=== PATIENT | female | born 1980 | race African-American/Black ===

== ENCOUNTER 2016-11-10 14:43 | Emergency (ER) | payer BC, MEDICAID ==
[~2016-11-10] VITALS: Ht 165.1 cm; Wt 89.0 kg
[2016-11-10 14:51] VITALS: Ht 165.1 cm; Wt 89.0 kg
[2016-11-10] MEDS ORDERED: KETOROLAC 15 MG INJ IV STA (21:29)
[2016-11-10 21:34] LABS: ADD SCAN DIFF NO
--- NOTE | 2016-11-10 21:35 | RADRPT ---
PROCEDURE: XR Chest. CLINICAL INDICATION: Chest pain. TECHNIQUE: Single frontal view of the chest was obtained COMPARISON: No. FINDINGS: The heart is upper limits of normal in size. The left-sided aorta is normal. The trachea and hilar structures are normal. The lungs are clear. The diaphragms are flattened. No pleural effusion is noted. The bony elements are normal. IMPRESSION: 1. Mild pulmonary hyperinflation with no evidence of an acute infiltrate. RPTAT:AAJJ Physician Tawnya Date Time Electronically viewed and signed by Luis Daniel Gary Physician on 11/10/2016 21:34 TIFFANIE/
[2016-11-10 21:38] LABS: ABNORMAL IP MESSAGE 1; HEMOGLOBIN 7.4 g/dl (12.0-16.0); MEAN CORPUSCULAR HEMOGLOBIN 29.5 pg (29.0-33.0); MEAN CORPUSCULAR VOLUME 79.7 fl (82.0-101.0); MEAN PLATELET VOLUME 10.7 fl (7.4-10.4); PLATELET COUNT 204 10^3/UL (140-415); RED BLOOD COUNT 2.51 10^6/ul (4.20-5.40); RED CELL DISTRIBUTION WIDTH 24.5 % (11.5-14.5); RETICULOCYTE COUNT % 14.6 % (0.5-1.5); WHITE BLOOD COUNT 14.9 10^3/ul (4.8-10.8)
[2016-11-10 21:46] LABS: POTASSIUM 3.7 mmol/L (3.5-5.1)
[2016-11-10 21:48] LABS: CREATININE 0.38 mg/dl (0.44-1.00); INR 1.3; PARTIAL THROMBOPLASTIN TIME 30.1 Sec (25.0-35.0); PROTIME 16.3 Sec (12.2-14.2); PT RATIO 1.3
[2016-11-10 21:49] LABS: CALCIUM 8.9 mg/dl (8.4-10.2)
[2016-11-10 21:59] LABS: EOSINOPHILS # 0.4 10^3/ul (0.0-0.5); HYPOCHROMASIA 2+; LYMPHOCYTES # 8.2 10^3/ul (0.8-2.9); NEUTROPHIL # 5.1 10^3/ul (1.6-7.5); SICKLE CELL 2+
[2016-11-10 22:01] LABS: TROPONIN-I 0.012 ng/ml (0.00-0.12)
--- NOTE | 2016-11-10 22:16 | ERD ---
ER Documentation Chief Complaint Date/Time DATE: 11/10/16 TIME: 22:13 Chief Complaint Pt with CP X 1 week, pt dx with sicjle cell anemia. HPI This is a 36-year-old female with a history of sickle cell disease who presents to the emergency room with a chief complaint of chest pain which is been intermittent on and off for the past 1 week. This patient denies any palpitations or shortness of breath. She denies any radiation of her pain, and denies any abdominal pain. She came to the ER today for evaluation. She did state that her hemoglobin was low previously, however she states her hemoglobin normally is in the "mid sevens" ROS All systems reviewed and are negative except as per history of present illness. Medications Home Meds No Active Prescriptions or Reported Meds Allergies Allergies: Coded Allergies: No Known Allergy (Unverified , 11/15/13) PMhx/Soc Hx Miscellaneous Medical Probl: Yes (SICKLE CELL) Hx Alcohol Use: No Hx Substance Use: No Hx Tobacco Use: No Physical Exam Vitals Vital Signs Date Time Temp Pulse Resp B/P Pulse Ox O2 Delivery O2 Flow Rate FiO2 11/10/16 18:14 76 21 113/67 94 Room Air 11/10/16 14:51 98.0 78 18 131/77 93 Physical Exam Const: No acute distress Head: Atraumatic Eyes: Normal Conjunctiva ENT: Normal External Ears, Nose and Mouth. Neck: Full range of motion..~ No meningismus. Resp: Clear to auscultation bilaterally Cardio: Regular rate and rhythm, no murmurs Abd: Soft, non tender, non distended. Normal bowel sounds Skin: No petechiae or rashes Back: No midline or flank tenderness Ext: No cyanosis, or edema Neur: Awake and alert Psych: Normal Mood and Affect Result Diagram: 11/10/16212611/10/162126 Results 24 hrs Laboratory Tests Test 11/10/16 21:27 Absolute Reticulocyte Count 0.368X10^6 Activated Partial Thromboplast Time 30.1Sec Anion Gap 15 Band Neutrophils % 1.0% Blood Urea Nitrogen 4mg/dl Calcium Level 8.9mg/dl Carbon Dioxide Level 28mmol/L Chloride Level 102mmol/L Creatinine 0.38mg/dl Eosinophils # 0.410^3/ul Eosinophils % 3.0% Glucose Level 87mg/dl Hematocrit 20.0% Hemoglobin 7.4g/dl Hypochromasia 2+ INR International Normalized Ratio 1.30 Lymphocytes # 8.210^3/ul Lymphocytes % 55.0% Macrocytosis 1+ Mean Corpuscular Hemoglobin 29.5pg Mean Corpuscular Hemoglobin Concent 37.0g/dl Mean Corpuscular Volume 79.7fl Mean Platelet Volume 10.7fl Monocytes # 1.010^3/ul Monocytes % 7.0% Neutrophils # 5.110^3/ul Neutrophils % 34.0% Percent Reticulocyte Count 14.6% Platelet Count 34545^3/UL Potassium Level 3.7mmol/L Prothrombin Time 16.3Sec Prothrombin Time Ratio 1.3 Red Blood Count 2.5110^6/ul Red Cell Distribution Width 24.5% Sickle Cells 2+ Sodium Level 141mmol/L Troponin I 0.012ng/ml White Blood Count 14.910^3/ul Current Medications Medications (Trade) Dose Ordered Sig/Susanna Route PRN Reason Start Time Stop Time Status Last Admin Dose Admin Ketorolac Tromethamine (Toradol) 15 mg ONCE STAT IV 11/10/16 21:29 11/10/16 21:31 DC Procedures/MDM EKG: #1 Rate/Rhythm: [Normal Sinus Rhythm] QRS, ST, T-waves: [No changes consistent w/ acute ischemia] Impression: [No evidence of ischemia or arrhythmia] EKG: #2 Rate/Rhythm: [Normal Sinus Rhythm] QRS, ST, T-waves: [No changes consistent w/ acute ischemia] Impression: [No evidence of ischemia or arrhythmia] Chest X-ray 1V Interpreted by me: Soft Tissue: No acute abnormalities Bones: No acute abnormalities Mediastinum/Cardiac Silhouette/Lungs: [No acute abnormalities] This 36-year-old female presents to the ER for evaluation of chest pain. This patient does have a history of sickle cell disease. I did obtain blood work on this patient which shows a hemoglobin of 7.4. Her reticulocyte count is greater than 14. She is not hypoxic, no respiratory distress. Chest x-ray is normal, and 2 EKGs are nonischemic. This patient has no signs of acute chest syndrome. I offered patient Toradol for pain however she states is not having pain at this time and wanted to have her hemoglobin evaluated. Her hemoglobin is at her baseline and she will be discharged home at this time. Departure Diagnosis: Primary Impression: Chest pain Additional Impression: Microcytic anemia Condition: Stable MAURICIO TRIPLETT DO Nov 10, 2016 22:15
[2016-11-10 22:42] VITALS: BP 116/64; PULSE 72; RESP 20; TEMP 98.7
== END 2016-11-10 22:45 | disposition home or self-care (01) ==
LOC: E/R 14:43
DX: R07.9 Chest pain, unspecified (principal); D50.9 Iron deficiency anemia, unspecified
CPT/HCPCS: 36415; 71010; 80048; 84484; 85025; 85045; 85610; 85730; Z7502; 93005

== ENCOUNTER 2017-03-17 00:26 | Emergency (ER) | payer MEDICAID, OTHER ==
[~2017-03-17] VITALS: Ht 162.6 cm; Wt 57.0 kg
[2017-03-17 00:31] VITALS: Ht 162.6 cm; Wt 57.0 kg
[2017-03-17] MEDS ORDERED: SOD CHLORIDE 0.9% 1,000 ML IV STA (02:08)
[2017-03-17 02:50] LABS: ABNORMAL IP MESSAGE 1; HEMATOCRIT 18.1 % (37.0-47.0); MEAN CORPUSCULAR HEMOGLOBIN 28.3 pg (29.0-33.0); MEAN CORPUSCULAR VOLUME 76.4 fl (82.0-101.0); MEAN PLATELET VOLUME 10.1 fl (7.4-10.4); NUCLEATED RED BLOOD CELLS% 0.3 /100WBC (0.0-0.0); PLATELET COUNT 331 10^3/UL (140-415); RED BLOOD COUNT 2.37 10^6/ul (4.20-5.40); RED CELL DISTRIBUTION WIDTH 23.3 % (11.5-14.5)
[2017-03-17 03:10] LABS: POSITIVE DIFF @See below
[2017-03-17 03:11] LABS: HEMOGLOBIN 6.7 g/dl (12.0-16.0)
[2017-03-17 03:17] LABS: INR 1.32; PARTIAL THROMBOPLASTIN TIME 33.7 Sec (25.0-35.0); PROTIME 16.5 Sec (12.2-14.2); PT RATIO 1.3
[2017-03-17 03:28] LABS: CALCIUM 8.8 mg/dl (8.4-10.2); CREATININE 0.39 mg/dl (0.44-1.00); POTASSIUM 3.8 mmol/L (3.5-5.1)
--- NOTE | 2017-03-17 03:31 | RADRPT ---
PROCEDURE: CHEST - 1 VIEW CLINICAL INDICATION: 36-year-old female with chest pain. TECHNIQUE: A single frontal AP upright portable view of the chest was performed. The images were reviewed on a PACS workstation. COMPARISON: Chest x-ray November 10, 2016. FINDINGS: The cardiomediastinal silhouette is mildly enlarged. There is mild pulmonary vascular congestion. There is no evidence for focal consolidation. There is no evidence for pneumothorax. The osseous str uctures are intact. IMPRESSION: 1. Mild cardiomegaly. 2. Mild pulmonary vascular congestion. .Timothy Porras MD, MD Date Time Electronically viewed and signed by .Timothy Porras MD, on 03/17/2017 03:30 .[place]/
[2017-03-17 03:32] LABS: ADD UMIC YES; UR ASCORBIC ACID NEGATIVE (NEGATIVE); UR BACTERIA MANY /HPF (NONE SEEN); UR BILIRUBIN (Dip) NEGATIVE (NEGATIVE); UR BLOOD (Dip) 3+ mg/dL (NEGATIVE); UR CLARITY SLIGHTLY CLOUDY (CLEAR); UR COLOR YELLOW (YELLOW); UR GLUCOSE (Dip) NEGATIVE (NEGATIVE); UR KETONES (Dip) NEGATIVE (NEGATIVE); UR LEUKOCYTE ESTERASE (Dip) TRACE Leu/ul (NEGATIVE); UR MUCUS MODERATE /HPF (NONE SEEN); UR NITRITE (Dip) POSITIVE (NEGATIVE); UR RBC 25 /HPF (0-5); UR SQUAMOUS EPITHELIAL CELL FEW /HPF (FEW); UR TOTAL PROTEIN (Dip) NEGATIVE (NEGATIVE); UR UROBILINOGEN (Dip) NEGATIVE (NEGATIVE)
[2017-03-17 03:40] LABS: TROPONIN-I 0.014 ng/ml (0.00-0.12)
[2017-03-17 03:50] LABS: EOSINOPHILS # 0.4 10^3/ul (0.0-0.5); MONOCYTE # 1.4 10^3/ul (0.3-0.9)
[2017-03-17 03:51] LABS: ANISOCYTOSIS 2+ (0-0); HYPOCHROMASIA 1+ (0-0); MICROCYTOSIS 1+ (0-0)
[2017-03-17 03:52] LABS: TEAR DROP CELLS 1+ (0-0)
[2017-03-17 03:53] LABS: OVALOCYTES 1+ (0-0); SICKLE CELL 2+ (0-0); TARGET CELLS 1+ (0-0)
[2017-03-17 03:54] LABS: POLYCHROMASIA 1+ (0-0)
[2017-03-17] MEDS ORDERED: SOD CHLORIDE 0.9% 250 ML IV ONE (04:13)
[2017-03-17] MEDS ORDERED: SOD CHLORIDE 0.9% 1,000 ML IV ONE (04:17)
[2017-03-17] MEDS ORDERED: CEFTRIAXONE 1 GM/50 ML (PMX) 50 ML IVPB ONE (04:30)
--- NOTE | 2017-03-17 05:49 | ERD ---
ER Documentation Chief Complaint Date/Time DATE: 03/17/17 TIME: 05:43 Chief Complaint intermittent chest pain x 1 month, hx- sickle cell disease HPI 36-year-old female with a history of sickle cell anemia presenting with intermittent chest pain for 1 month. The pain is sometimes on the left side of her chest and at times on the right side of her chest. It is sharp, lasting seconds. It has been happening daily. She has not had any associated shortness of breath, fever, chills, cough, nausea, vomiting. She has made an appointment with her doctor, but has not seen her primary about this complaint. She does not take any pain medications at home. Her baseline Hemoglobin is around 8. She has had blood transfusions in the past. Currently she also complains about dysuria. However she denies any flank pain. She is currently on her menstrual period ROS All systems reviewed and are negative except as per history of present illness. Medications Home Meds Active Scripts Hydrocodone/Acetaminophen ([place] 10-325 Tablet) 1 Each Tablet, 1 TAB PO Q6H Y for PAIN, #7 TAB Prov:LOUIS SERRA MD 03/17/17 Allergies Allergies: Coded Allergies: No Known Allergy (Unverified , 03/17/17) PMhx/Soc History of Surgery: No Anesthesia Reaction: No Hx Neurological Disorder: No Hx Respiratory Disorders: No Hx Cardiac Disorders: No Hx Psychiatric Problems: No Hx Miscellaneous Medical Probl: Yes (SICKLE CELL) Hx Alcohol Use: No Hx Substance Use: No Hx Tobacco Use: No Smoking Status: Never smoker FmHx Family History: No diabetes Physical Exam Vitals Vital Signs Date Time Temp Pulse Resp B/P Pulse Ox O2 Delivery O2 Flow Rate FiO2 03/17/17 12:04 98.9 71 16 113/67 100 Room Air 03/17/17 06:21 98.9 66 16 106/70 100 Room Air 03/17/17 05:47 99.5 61 16 104/68 100 Room Air 03/17/17 05:07 99.3 76 16 110/70 100 Room Air 03/17/17 01:48 98.0 78 20 126/94 100 Room Air 03/17/17 00:31 97.3 68 20 125/72 100 Physical Exam Const: Well-appearing, no apparent distress, speaking in full sentences Head: Atraumatic Eyes: Normal Conjunctiva ENT: Normal External Ears, Nose and Mouth. Neck: Full range of motion..~ No meningismus. Resp: Clear to auscultation bilaterally Cardio: Regular rate and rhythm, no murmurs. 2+ distal pulses Abd: Soft, non tender, non distended. Normal bowel sounds Skin: No petechiae or rashes Back: No midline or flank tenderness Ext: No cyanosis, or edema. No calf tenderness. Neur: Awake and alert and oriented 3, cranial nerves intact, strength and sensations intact in all 4 extremities Psych: Normal Mood and Affect Result Diagram: 03/17/17 0240 03/17/17 0240 Results 24 hrs Laboratory Tests Test 03/17/17 02:40 03/17/17 02:45 03/18/17 12:31 White Blood Count 12.810^3/ul Red Blood Count 2.3710^6/ul Hemoglobin 6.7g/dl Hematocrit 18.1% Mean Corpuscular Volume 76.4fl Mean Corpuscular Hemoglobin 28.3pg Mean Corpuscular Hemoglobin Concent 37.0g/dl Red Cell Distribution Width 23.3% Platelet Count 90487^3/UL Mean Platelet Volume 10.1fl Neutrophils % 47.0% Lymphocytes % 39.0% Monocytes % 11.0% Eosinophils % 3.0% Basophils % % Nucleated Red Blood Cells % 0.3/100WBC Neutrophils # 6.010^3/ul Lymphocytes # 5.010^3/ul Monocytes # 1.410^3/ul Eosinophils # 0.410^3/ul Basophils # 10^3/ul Nucleated Red Blood Cells # 10^3/ul Polychromasia 1+ Hypochromasia 1+ Anisocytosis 2+ Microcytosis 1+ Sickle Cells 2+ Target Cells 1+ Tear Drop Cells 1+ Ovalocytes 1+ Absolute Reticulocyte Count 0.288X10^6 Percent Reticulocyte Count 12.0% Prothrombin Time 16.5Sec Prothrombin Time Ratio 1.3 INR International Normalized Ratio 1.32 Activated Partial Thromboplast Time 33.7Sec Sodium Level 141mmol/L Potassium Level 3.8mmol/L Chloride Level 103mmol/L Carbon Dioxide Level 25mmol/L Anion Gap 17 Blood Urea Nitrogen 5mg/dl Creatinine 0.39mg/dl Glucose Level 82mg/dl Calcium Level 8.8mg/dl Troponin I 0.014ng/ml Serum HCG, Qualitative NEGATIVE Urine Color YELLOW Urine Clarity SLIGHTLY CLOUDY Urine pH 6.0 Urine Specific [place] 1.010 Urine Ketones NEGATIVEmg/dL Urine Nitrite POSITIVEmg/dL Urine Bilirubin NEGATIVEmg/dL Urine Urobilinogen NEGATIVEmg/dL Urine Leukocyte Esterase TRACELeu/ul Urine Microscopic RBC 25/HPF Urine Microscopic WBC 17/HPF Urine Squamous Epithelial Cells FEW/HPF Urine Bacteria MANY/HPF Urine Mucus MODERATE/HPF Urine Hemoglobin 3+mg/dL Urine Glucose NEGATIVEmg/dL Urine Total Protein NEGATIVEmg/dl Lab Scanned Report BLOOD [id number] Current Medications Medications (Trade) Dose Ordered Sig/Susanna Route PRN Reason Start Time Stop Time Status Last Admin Dose Admin Sodium Chloride 1,000 ml @ 1,000 mls/hr Q1H STAT IV 03/17/17 02:08 03/17/17 03:07 DC Sodium Chloride 250 ml @ 0 mls/hr Q0M ONCE IV 03/17/17 04:13 03/17/17 04:15 DC 03/17/17 04:54 Ceftriaxone Sodium 50 ml @ 100 mls/hr ONCE ONCE IVPB 03/17/17 04:30 03/17/17 04:59 DC 03/17/17 04:54 Sodium Chloride (NS) 1,000 ml @ 500 mls/hr Q2H ONCE IV 03/17/17 04:17 03/17/17 06:16 DC 03/17/17 04:54 Procedures/MDM EKG: Rate/Rhythm: Normal Sinus Rhythm QRS, ST, T-waves: No changes consistent w/ acute ischemia Impression: No evidence of ischemia or arrhythmia CBC: Anemic, leukocytosis CMP: No evidence of electrolyte abnormality, renal failure, hypoglycemia, liver failure, or biliary obstruction Troponin within normal limits UA: There is evidence of UTI Reticulocyte count high Chest x-ray: Mild cardiomegaly, mild pulmonary vascular congestion MDM Patient is presenting with intermittent chest pain for 1 month. She is afebrile with stable vitals. I do not suspect acute chest syndrome. Her labs are notable for anemia, lower than her baseline. I consented her for 2 units of blood transfusion. Rocephin was given for UTI. The patient states that she does not want any pain medications at this time as she is not having any pain. I have a low suspicion for acute coronary syndrome or pulmonary embolism. I do not suspect aortic dissection. The etiology of her chest pain is not clear at this time, however I do think she needs the blood transfusion. Patient does not want to be admitted to the hospital if possible. I told her that we can give her the transfusion and if she does well after the transfusion we could discharge her with follow-up with her primary care doctor. Patient is agreeable with this plan. Patient was signed out to Dr. Caban, the oncoming ED physician, who will follow up with the patient after her transfusion. If she is stable, she may be discharged. Departure Diagnosis: Primary Impression: Intermittent chest pain Condition: LOUIS Davis MD Mar 17, 2017 05:49
[2017-03-17] MEDS ORDERED: HYDR-902 PO (06:05)
[2017-03-17 12:04] VITALS: BP 113/67; PULSE 71; RESP 16; TEMP 98.9
[2017-03-20 09:44] LABS: WHITE BLOOD COUNT 12.8 10^3/ul (4.8-10.8)
== END 2017-03-17 12:05 | disposition home or self-care (01) ==
LOC: E/R 00:26
DX: R07.9 Chest pain, unspecified (principal); D64.9 Anemia, unspecified
CPT/HCPCS: 36430; 71010; 80048; 81001; 84484; 84703; 85025; 85045; 85610; 85730; 86850; 86900; 86901; 86920; J0696; J7030; J7040; P9016; 36415; 93005; 96374

== ENCOUNTER 2018-01-01 20:52 | Emergency (ER) | END 2018-01-02 05:06 | disposition short-term general hospital (02) ==

== ENCOUNTER 2019-05-21 11:00 | Emergency (ER) | payer OTHER ==
[~2019-05-21] VITALS: Ht 162.6 cm; Wt 57.6 kg
[~2019-05-21 11:00] MED LIST: FOLI-49 PO
[2019-05-21 11:21] VITALS: Ht 162.6 cm; Wt 57.6 kg
[2019-05-21] MEDS ORDERED: KETOROLAC 15 MG INJ IV STA (13:07)
[2019-05-21] MEDS ORDERED: SOD CHLORIDE 0.9% 100 ML ONE (14:26)
[2019-05-21] MEDS ORDERED: IOHEXOL 100 ML ONE (14:26)
[2019-05-21 15:38] VITALS: BP 119/74; PULSE 73; RESP 18
== END 2019-05-21 15:40 | disposition home or self-care (01) ==
LOC: E/R 11:00
DX: R09.1 Pleurisy (principal)
CPT/HCPCS: 71045; 71275; 80048; 84484; 84703; 85025; 85378; 93005; Q9967; Z7502; Z7610